=== PATIENT | female | born 1955 | race Caucasian/White ===

== ENCOUNTER 2016-10-02 11:42 | Day surgery (SDC) | payer MEDICAID, OTHER ==
[~2016-10-02 11:42] MED LIST: Lactated Ringers 1,000 ML IV SCH
--- NOTE | 2016-10-02 12:35 | PCM.PREANE ---
Preanesthetic Assessment - Procedure Proposed Procedure: Colonoscopy - Anesthesia/Transfusion/Family Hx Anesthesia History: Prior Anesthesia Without Reaction Other Type of Anesthesia Reaction Comment: states nephew had reaction to anesthesia yrs ago but not sure what is was Family History of Anesthesia Reaction: Yes (see above, no information) Transfusion History: No Prior Transfusion(s) Intubation History: Unknown - Review of Systems General: No Symptoms Pulmonary: No Symptoms Cardiovascular: No Symptoms, Other (HTN - treated) Gastrointestinal: No Symptoms (family hx) Neurological: No Symptoms Other: Reports: Diabetes (type II), Liver Problems (Hepatitis C) - Physical Assessment O2 Sat by Pulse Oximetry: 99 Respiratory Rate: 16 Vital Signs: Last Vital Signs Temp 97.3 F 10/02/16 11:55 Pulse 58 L 10/02/16 11:55 Resp 16 10/02/16 11:55 BP 154/71 H 10/02/16 11:55 Pulse Ox 99 10/02/16 11:55 Height: 5 ft 6 in Weight: 196 lb ASA Class: 3 Mental Status: Alert & Oriented x3 Airway Class: Mallampati = 2 Dentition: Reports: Normal Dentition Thyro-Mental Finger Breadths: 3 Mouth Opening Finger Breadths: 3 ROM/Head Extension: Full Lungs: Clear to Auscultation, Normal Respiratory Effort Cardiovascular: Regular Rate, Regular Rhythm, No Murmurs - Allergies Allergies/Adverse Reactions: Allergies Allergy/AdvReac Type Severity Reaction Status Date / Time No Known Allergies Allergy Verified 09/29/16 10:17 - Blood Blood Available: No Product(s) Available: None - Anesthesia Plan Pre-Op Medication Ordered: None - Acknowledgements Anesthesia Type Planned: MAC Pt an Appropriate Candidate for the Planned Anesthesia: Yes Alternatives and Risks of Anesthesia Discussed w Pt/Guardian: Yes Pt/Guardian Understands and Agrees with Anesthesia Plan: Yes PreAnesthesia Questionnaire HEENT History: Reports: Other (See Below) Other HEENT History: wears glasses Cardiovascular History: Reports: Hypertension Gastrointestinal History: Reports: Hepatitis Other Gastrointestinal History: hepatitis C (states is to start medication regimen for this following colonoscopy) Endocrine/Metabolic History: Reports: Diabetes, Type II, Obesity/BMI 30+ - Past Surgical History Head Surgeries/Procedures: Reports: None HEENT Surgical History: Reports: Tonsillectomy GI Surgical History: Reports: Colonoscopy - SUBSTANCE USE Smoking Status *Q: Never Smoker Recreational Drug Use History: No - HOME MEDS Home Medications: Home Meds Aspirin [Wise Aspirin] 81 mg PO DAILY 09/29/16 [History] Cholecalciferol (Vitamin D3) [Vitamin D3] 1,000 units PO DAILY 09/29/16 [History ] Dextran 70/Hypromellose [Artificial Tears] 1 - 2 drop EYEBOTH ASDIRECTED PRN [History] Fish Oil/[place]-3 Fatty Acids [Fish Oil 1,000 MG] 2 tab PO BID 09/29/16 [History] Lisinopril 40 mg PO DAILY 09/29/16 [History] Multivitamin [Multivitamins] 1 tab PO DAILY 09/29/16 [History] metFORMIN HCl [Metformin HCl] 500 mg PO DAILY 09/29/16 [History] - CURRENT (IN HOUSE) MEDS Current Meds: Current Medications Lactated Ringer's (Ringers, Lactated) 1,000 mls @ 125 mls/hr IV ASDIRECTED VLADIMIR Last Admin: 10/02/16 12:00 Dose: 125 mls/hr
[2016-10-02] MEDS ORDERED: fentaNYL 100 MCG/2 ML SDV ONE (12:57)
[2016-10-02] MEDS ORDERED: Lidocaine 2% 5 ML SDV ONE (12:57)
[2016-10-02] MEDS ORDERED: Midazolam 1 MG/ML 2 ML SDV ONE (12:57)
[2016-10-02] MEDS ORDERED: Propofol 200 MG/20 ML SDV ONE (12:57)
--- NOTE | 2016-10-02 13:33 | PCM.OPNOTE ---
- General Post-Op/Procedure Note Date of Surgery/Procedure: 10/02/16 Operative Procedure(s): colonoscopy Findings: see dict [id number] Pre Op Diagnosis: surveillence colonoscopy Post-Op Diagnosis: Same Anesthesia Technique: Moderate Sedation Primary Surgeon: Gary Vaca Complications: None Condition: Good
--- NOTE | 2016-10-02 13:43 | PCM.POSTAN ---
POST ANESTHESIA ASSESSMENT - MENTAL STATUS Mental Status: Alert, Oriented - VITAL SIGNS Pulse Rate: 51 SaO2: 97 Resp Rate: 10 Blood Pressure: 112/60 - RESPIRATORY Respiratory Status: Respiratory Rate WNL, Airway Patent, O2 Saturation Stable - CARDIOVASCULAR CV Status: Pulse Rate WNL, Blood Pressure Stable - GASTROINTESTINAL GI Status: No Symptoms - PAIN Pain Score: 0 - POST OP HYDRATION Hydration Status: Adequate & Stable
--- NOTE | 2016-10-02 14:03 | PCM48HPAN ---
Post Anesthesia Note - EVALUATION WITHIN 48HRS OF ANESTHETIC Vital Signs in Normal Range: Yes Patient Participated in Evaluation: Yes Respiratory Function Stable: Yes Airway Patent: Yes Cardiovascular Function Stable: Yes Hydration Status Stable: Yes Pain Control Satisfactory: Yes Nausea and Vomiting Control Satisfactory: Yes Mental Status Recovered: Yes
[2016-10-02 14:17] VITALS: BP 128/64
--- NOTE | 2016-10-02 15:42 | OR ---
SURGEON: Gary Vaca MD DATE OF PROCEDURE: 10/02/2016 PROCEDURE: Colonoscopy. FINDINGS: The patient is easily sedated with [employer] and Diprivan. The patient is soundly snoring and bowel prep was average with moderate amount of liquid stool. No semi-formed stool. Colon is pretty redundant at the sigmoid area and requiring several other maneuvers, put the patient on the back in order to get to the cecum. Cecum was indicated by ileocecal fold, one-to-one indentation, light emittance, and appendiceal orifice. Mucosa examined upon scope pulling out. The patient has very mild diverticulosis on the left colon. No signs or symptoms of diverticulitis. No polyp, mass, growth, AV malformation, inflammation, stricture, ulceration, and bleeding. The patient has mild external hemorrhoids and mild internal hemorrhoids. The patient would benefit from repeat colonoscopy in 10 years from today or if clinically indicated otherwise. The patient can get the colonoscopy report on the phone and that will be just fine. DESCRIPTION OF PROCEDURE: The patient was taken to the endoscopy room. A time out was called, patient identified, and procedure identified. Diprivan was then administrated. Patient went from awake to sleep, hearing doctor talking or door closing is normal. Perineum inspection and digital examination were then performed. A well- lubricated colonoscope was gently inserted through the rectum, advanced past the rectosigmoid junction, the descending colon, splenic flexure, transverse colon, hepatic flexure, ascending colon, arrived to the cecum. Cecum was identified as dictated in the finding. Then the scope was carefully withdrawn while attention was paid to the mucosal surface for any abnormality. Air will be sucked out during the scope withdrawal. At the rectum, retroflexed to examine any rectal diseases, fistula or hemorrhoids. Patient tolerated procedure well. There were no intraoperative complications, and Dr. Vaca was present throughout the whole procedure. As always, thank you for the kind referral. TILA / MONTEZ /[id number]
== END 2016-10-02 14:18 | disposition home or self-care (01) ==
LOC: MW.SDS 11:42
PROVIDERS: ATTEND Surgery
PROC: 0DJD8ZZ Inspection of Lower Intestinal Tract, Via Natural or Artificial Opening Endoscopic (ICD-10-PCS; principal; 2016-10-02)
DX: Z12.11 Encounter for screening for malignant neoplasm of colon (principal); K57.30 Diverticulosis of large intestine without perforation or abscess without bleeding; K64.4 Residual hemorrhoidal skin tags; K64.8 Other hemorrhoids; I10 Essential (primary) hypertension; E11.9 Type 2 diabetes mellitus without complications; E66.9 Obesity, unspecified; B19.20 Unspecified viral hepatitis C without hepatic coma; Z79.82 Long term (current) use of aspirin; Z79.84 Long term (current) use of oral hypoglycemic drugs; Z79.899 Other long term (current) drug therapy; Z90.89 Acquired absence of other organs; Z98.890 Other specified postprocedural states; Z68.31 Body mass index [BMI] 31.0-31.9, adult
CPT/HCPCS: 45378; J2250; J3010; J7120; 00810; J2704